=== PATIENT | female | born 1940 | race Caucasian/White ===

== ENCOUNTER 2019-05-20 05:52 | Observation (INO) | payer MEDICARE, OTHER ==
[2019-05-20] MEDS ORDERED: Lactated Ringers 1,000 ML IV SCH (07:00)
[2019-05-20] MEDS ORDERED: CEFAZOLIN 2 GM-D5W BAG** 2 GM/50 ML ML IV SCH (07:00)
[2019-05-20] MEDS ORDERED: Xylocaine-Mpf 2% 5 Ml Vial ONE (07:48)
[2019-05-20] MEDS ORDERED: Decadron 4 MG INJ ONE ×2 (07:48→13:32)
[2019-05-20] MEDS ORDERED: EMLA Cream 5 GM TP PRN (08:01)
[2019-05-20] MEDS ORDERED: Sensorcaine 0.25% 10 ML ONE ×2 (08:11→09:20)
--- NOTE | 2019-05-20 08:44 | HP ---
DATE OF SURGERY: 05/20/2019 HISTORY OF PRESENT ILLNESS: The patient is a 78 year-old who has prior history of left breast biopsy in the past. She had abnormal right breast mammogram and underwent biopsy filtrating ductal carcinoma. She is in need of lumpectomy, Faber lymph node biopsy, radioscintigraphy possible blue dye. PAST MEDICAL HISTORY: Atrial fibrillation in the past, chronic obstructive pulmonary disease, congestive heart failure. PAST SURGICAL HISTORY: D&C. section. Right breast lumpectomy 1989. Heart cath 2012. Colonoscopy. Left breast lumpectomy in the past. Lung surgery. Hysterectomy. Right wrist surgery. Left breast surgery 2013. Core biopsy March 2019 showing small differentiated infiltrating ductal carcinoma right breast. MEDICATIONS: Budesonide, Albuterol, nebulized Combivent, Alendronate, atorvastatin, Verapamil, Montelukast, omeprazole, Eliquis, Estradiol, furosemide, paroxetine, aspirin, Spironolactone, probiotic, iron-65, Coq-10. ALLERGIES: NKDA. FAMILY HISTORY: Diabetes, hypertension. She does have family history of breast cancer in the past. History of congestive heart failure, chronic obstructive pulmonary disease, hypertension. SOCIAL HISTORY: No smoking or alcohol abuse. REVIEW OF SYSTEMS: Fourteen systems reviewed as noted above per preadmission assessment. She has had chronic obstructive pulmonary disease. She has some hypertension and some heart disease. Recently diagnosed with breast cancer. Benign left breast biopsy in the past. PHYSICAL EXAMINATION: GENERAL: No acute distress. HEENT: Sclerae nonicteric. NECK: No JVD. CHEST: Equal excursion, nonlabored breathing. CVS: Regular rate and rhythm. BREAST: A little bit of induration where they did the biopsy. No large mass. No palpable axillary adenopathy at this point. ABDOMEN: Soft. EXTREMITIES: No edema. NEURO: Alert, oriented, moving extremities symmetrically. No gross motor deficits noted. IMPRESSION: Right breast cancer. I feel the patient will benefit from right breast lumpectomy prior needle placement with Faber lymph node biopsy with radioscintigraphy with possible blue dye. General risk of bleeding or infection, risk of hematoma, infection or abscess possibly requiring packing, risk of involved margins possibly requiring wider excision or other procedures, general risk of aches, pains, burning or numbness possible chcf in nature, risk of contour changes of her breast as we are removing some volume. She also understands the general risk of axillary needle biopsy, risk of bleeding or infection, risk of hematoma, seroma or lymphocele formation, risk of aches, pain, burning or numbness or weakness of the extremity or shoulder or scapula possible wing scapula, risk of sensory or motor nerve irritation, scar formation or injury, possible inability to identify a Faber node possibly requiring axillary dissection, biopsy or removal of any chronically suspicious thien tissue. She understands as well as general risk of anesthesia, deep venous thrombosis, pulmonary embolism, pneumonia. When she will receive cardiac clearance and pulmonary clearance will proceed with right breast lumpectomy prior needle placement, Faber lymph node biopsy as an outpatient.
[2019-05-20] MEDS ORDERED: Lactated Ringers 1,000 ML IV ONE (09:20)
[2019-05-20] MEDS ORDERED: Quelicin Fliptop 200 MG/10 ML ONE (11:51)
[2019-05-20] MEDS ORDERED: Zemuron 100 MG/10 ML ONE (11:51)
[2019-05-20] MEDS ORDERED: DIPRIVAN 200 MG/20 ML IV ONE (11:51)
[2019-05-20] MEDS ORDERED: SUBLIMAZE 100 MCG/2 ML ONE ×2 (11:51→14:39)
[2019-05-20] MEDS: PROVENTIL 2.5 MG/3 ML NEB IH PRN ×2 (12:39→20:59)
--- NOTE | 2019-05-20 13:06 | XRAY ---
Indication: Right breast cancer. Patient received 4 right periareolar subcutaneous injections totaling 970 Ci of filtered technetium 99 sulfur colloid. Delayed anterior and lateral planar images obtained. Solitary focus of increased radiopharmaceutical activity seen in the right axillary tail. Skin was demarcated for the surgeon. Patient was taken to surgery. Impression: Single radiopharmaceutical active sentinel node identified.
[2019-05-20] MEDS ORDERED: Zofran 4 MG/2 ML VIAL ONE ×2 (13:32→15:23)
[2019-05-20] MEDS ORDERED: TORAdol 30 mg Injection ONE (13:32)
--- NOTE | 2019-05-20 13:58 | XRAY ---
Indication: Needle wire localization for biopsy proven 4:00 right cancer. Patient's outside mammograms from [facility] were reviewed revealing mammotome clip/biopsy site 4:00 position approximately 9 cm from the nipple. Informed consent obtained. Right breast was compressed in the mediolateral plane using a alphanumeric grid paddle. Skin was cleansed with Betadine swabs. A 20-gauge Ghiatas needle was then percutaneously. Orthogonal right mammogram was obtained confirming overall good needle tip placement. Ultimately a hooked megan wire was then inserted into the needle with the outer needle removed. Repeat orthogonal digital mammograms obtained confirms overall good needle placement. Wire were secured and overlying bandage material applied. Patient was then taken to surgery. Impression: Technically successful needle wire localization 4:00 mammotome clip/biopsy site. No immediate complications.
--- NOTE | 2019-05-20 14:00 | XRAY ---
Indication: Surgical specimen following needle wire localization. A single specimen radiograph demonstrates mammotome clip/biopsy site with intact megan wire. Findings were reported to the surgeon.
[2019-05-20] MEDS ORDERED: DILAUDID 2 MG INJECTION ONE (14:39)
[2019-05-20] MEDS ORDERED: DUONEB 0.5-3 MG/3 ml Neb IH ONE (15:15)
--- NOTE | 2019-05-20 15:17 | OP ---
SURGERY DATE/TIME: 05/20/2019 1310 PREOPERATIVE DIAGNOSIS: Right breast cancer. POSTOPERATIVE DIAGNOSIS: Right breast cancer. PROCEDURES: 1) Right breast lumpectomy prior needle placement. 2) Mitchells lymph node biopsy right axilla with radiolymphoscintigraphy. SURGEON: Dr. Dixon Moyer. ANESTHESIA: General. ESTIMATED BLOOD LOSS: Minimal. INDICATIONS: As noted above. Risks and benefits explained in detail and not limited to and consent obtained. DESCRIPTION OF PROCEDURE AND FINDINGS: The patient is taken to the operating room. General anesthesia induced. She had previously been to radiology and nuclear medicine injection and had prior needle placement. The right breast was marked in the preoperative holding area. She was taken to the operating room. General anesthesia induced. Breast and axilla prepped and draped in usual sterile fashion. After official time out and no disagreement with planned procedure, a spindle-shaped segment of skin was included over the top around the prior needle placement. Dissection carried down through the subcu circumferentially around wire centered placement down the chest wall beneath slowly and carefully. The specimen is passed off and marked with double tie at the 6:00 and single tie at 3:00. Specimen mammography radiologist called back and said the specimen looked good with adequate radiographic margins. Hemostasis controlled with some pinpoint cautery. Small oozing vessels controlled with 3-0 Vicryl suture ligature. Good hemostasis noted. The deeper breast parenchyma was then brought back reducing the space as much as possible with interrupted 3-0 Vicryl. Deep and superficial subcu closed with 3-0 Vicryl. Skin closed with 4-0 Vicryl. Steri-Strips and sterile dressing applied. She was given a breast binder at the end of the procedure. The gloves and instruments were changed. At this time the nuclear probe was carefully placed in the axilla. A transverse incision made. Dissection carried deep into the deep axilla and slowly and carefully a small but slightly enlarged lymph node that had high uptake slowly and carefully dissected free clipping the small lymphatics arterioles or venules anterior to the capsule. This gave uptake of about 140 and was definitely the true hot Mitchells node. Only one had been seen per radiology. It is just slightly thickened lymph node but there is question whether there is any radioactive uptake initially of this slightly thickened adjacent lymph node was carefully dissected free. There did not appear to be any radioactivity on the back table but it is was sent as a second lymph node. Clipped lymphatics and blood vessels into and out of it staying directly on the capsule. There was no other clinically suspicious adenopathy. There was no other obvious Mitchells node at the nuclear probe. Good hemostasis noted. Wound irrigated out. ODESSA drain placed in the deep axilla out through anterior stab wound secured with PDS suture and placed to bulb suction. Good hemostasis noted. The axillary fascia reapproximated with 3-0 Vicryl. Subcu closed with 3-0 Vicryl. Skin closed with 4-0 Vicryl. Steri-Strips and sterile pressure dressing applied. The patient tolerated the procedure well. There were no immediate complications. Findings discussed with the family out in the waiting area.
[2019-05-20] MEDS ORDERED: Narcan 0.4 MG/ML ONE (16:13)
[2019-05-20] MEDS ORDERED: BRIDION 200MG/2ML IV ONE (16:14)
[2019-05-20] MEDS ORDERED: Lasix 20 MG/2 ML ONE (16:14)
[2019-05-20] MEDS: Lasix 20 MG/2 ML IV ONE ×2 (16:20→16:22)
[2019-05-20] MEDS ORDERED: NORCO 5/325 MG PO PRN (19:57)
[2019-05-20] MEDS ORDERED: Zofran 4 MG/2 ML VIAL IV PRN (19:58)
[2019-05-20] MEDS ORDERED: MORPHINE SULFATE 2 MG INJ IV PRN (19:58)
[2019-05-20] MEDS ORDERED: Reglan 10 MG/2 ML IV PRN (19:59)
[2019-05-20] MEDS ORDERED: Aldactone 25 MG PO ONE (22:00)
[2019-05-20] MEDS ORDERED: CALAN 80 MG PO ONE (22:00)
[2019-05-20] MEDS ORDERED: Zestril 20 MG PO ONE (22:00)
[2019-05-21 05:19] LABS: Hematocrit 31.5 % (35-47); Hemoglobin 9.7 gm/dl (12.0-16.0); Mean Cell Volume 85.4 fl (78-100); Mean Corpuscular Hemoglobin 26.3 pg (26-32); Mean Corpuscular Hgb Concent. 30.8 g/dl (32-36); Mean Platelet Volume 11.9 fl (6-9.5); Platelet Count 196 K/mm3 (150-450); Red Blood Count 3.69 M/mm3 (4.1-5.4); Red Cell Distribution Width 14.1 % (11.5-14.0); White Blood Count 7.8 K/mm3 (4.0-10.5)
[2019-05-21 05:25] LABS: ANION GAP 12.3 MEQ/L (5-15); Calcium 9.3 mg/dL (8.4-10.2); Creatinine 1 1.49 mg/dL (0.52-1.04); Potassium 5.3 mmol/L (3.5-5.1)
[2019-05-21] MEDS ORDERED: DUONEB 0.5-3 MG/3 ml Neb IH ONE (06:45)
[2019-05-21] MEDS ORDERED: PROVENTIL 2.5 MG/3 ML NEB IH ONE (06:48)
[2019-05-21] MEDS ORDERED: Reglan 10 MG/2 ML IV PRN (06:48)
[2019-05-21] MEDS: PROVENTIL 2.5 MG/3 ML NEB IH SCH ×2 (06:51→11:07)
[2019-05-21 08:53] VITALS: BP 128/61; PULSE 78; O2SAT 98
== END 2019-05-21 12:45 | disposition home or self-care (01) ==
LOC: SDC 05:52 → MED SURG 18:53
PROVIDERS: ADMIT Family Medicine; ATTEND Family Medicine
DX: C50.911 Malignant neoplasm of unspecified site of right female breast (principal)
CPT/HCPCS: 19081; 19281; 19301; 36415; 38525; 76098; 78195; 80048; 85027; 94150; 94640; 94760; A9541; G0378; J0330; J0690; J1100; J1170; J1885; J1940; J2310; J2405; J2704; J3010; J7609; A9270-GY

== ENCOUNTER 2024-06-24 16:52 | Emergency (ER) | payer MEDICARE, OTHER ==
--- NOTE | 2024-06-24 17:23 | ERPHSYRPT ---
- History of Present Illness Time Seen by Provider: 06/24/24 17:22 Source: patient, family Exam Limitations: no limitations Physician History: This is an 83-year-old white female patient who presents to the emergency department accompanied by family member because of episodes of hemoptysis that began yesterday. She has had a few episodes today. Patient is on Eliquis which is part of her treatment plan for atrial fibrillation. In addition, the patient has COPD that is oxygen dependent on 2 L of oxygen via nasal cannula. Patient has a history of CHF, gastroesophageal reflux disease, hyperlipidemia, chronic anemia on iron supplementation and hypertension. Patient denies chest pain. Timing/Duration: yesterday Cough Quality/Degree: mild, blood streaked sputum Possible Cause: no prior episodes Modifying Factors: Improves With: coughing, oxygen (Patient chronically wears oxygen) Associated Symptoms: cough Allergies/Adverse Reactions: No Known Drug Allergies Allergy (Verified 06/24/24 17:17) Home Medications: Atorvastatin Calcium [Lipitor] 40 mg PO QAM 05/13/19 [History] Fluticasone/Umeclidin/Vilanter [Trelegy Ellipta 100-62.5-25] 1 each IH DAILY 05/13/19 [History] Ferrous Sulfate, Dried [Iron] 65 mg PO DAILY 05/14/19 [History] Furosemide 20 mg [Lasix 20 mg] 20 mg PO BID 05/14/19 [History] Montelukast Sodium 10 mg [Singulair 10 MG] 10 mg PO QPM 05/14/19 [History] Multivitamin [Multivitamins] 1 each PO DAILY 05/14/19 [History] Omeprazole 20 mg PO BID 05/14/19 [History] Oxybutynin Chloride Xl 5 mg [Ditropan XL 5 MG] 5 mg PO DAILY 05/14/19 [History] Spironolactone 25 mg [Aldactone 25 MG] 25 mg PO DAILY 05/14/19 [History] Ubidecarenone/Vit E Acet [Co Q-10 100 mg Softgel] 1 each PO DAILY 05/14/19 [History] Amiodarone HCl 200 mg [Cordarone 200 MG] 200 mg PO BID 06/24/24 [History] Travel Risk - International Travel Have you traveled outside of the country in past 3 weeks: No - Emerging Infectious Disease Are you exhibiting symptoms associated with any current EIDs: Yes Symptoms: Cough: New Onset - Review of Systems Constitutional: No Symptoms Eyes: No Symptoms Ears, Nose, & Throat: No Symptoms Respiratory: Cough Cardiac: No Symptoms Abdominal/Gastrointestinal: No Symptoms Genitourinary Symptoms: No Symptoms Musculoskeletal: No Symptoms Skin: No Symptoms Neurological: No Symptoms Psychological: No Symptoms Endocrine: No Symptoms Hematologic/Lymphatic: No Symptoms Immunological/Allergic: No Symptoms All Other Systems: Reviewed and Negative - Past Medical History Pertinent Past Medical History: Yes Neurological History: No Pertinent History ENT History: Cataracts, Other Cardiac History: Arrhythmia, Congestive Heart Failure, High Cholesterol, Hypertension Respiratory History: COPD, Sleep Apnea, Other Endocrine Medical History: Hypothyroidism Musculoskeletal History: Arthritis GI Medical History: GERD History: No Pertinent History Psycho-Social History: No Pertinent History Female Reproductive Disorders: Breast Cancer Other Medical History: on 2l O2 at all times hx smoker. hx hypothyroid - not needing medication at this time. 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 - Past Surgical History Past Surgical History: Yes Neuro Surgical History: No Pertinent History Cardiac: Cardiac Catheterization Respiratory: Other Gastrointestinal: Hernia Repair Genitourinary: No Pertinent History Musculoskeletal: Orthopedic Surgery Female Surgical History: Hysterectomy, Dilation & Curettage, Section, Lumpectomy Other Surgical History: R breast lumpectomy with lymph nodes. L breast lumpectomy. left breast surgery. right wrist surgery. " lung surgery" - Social History Smoking Status: Former smoker Exposure to second hand smoke: No Drug Use: none - Nursing Vital Signs Nursing Vital Signs: Initial Vital Signs Temperature 97.7 F 06/24/24 17:26 Pulse Rate 58 L 06/24/24 17:26 Respiratory Rate 18 06/24/24 17:26 Blood Pressure 151/77 06/24/24 17:26 O2 Sat by Pulse Oximetry 98 06/24/24 17:26 Pain Scale Pain Intensity 0 - Physical Exam General Appearance: no apparent distress, alert, anxiety Eye Exam: PERRL/EOMI, eyes nml inspection Ears, Nose, Throat Exam: normal ENT inspection, moist mucous membranes Neck Exam: normal inspection, non-tender, supple, full range of motion Respiratory Exam: normal breath sounds, lungs clear, airway intact, No chest tenderness, No respiratory distress Cardiovascular Exam: regular rate/rhythm, normal heart sounds, normal peripheral pulses Gastrointestinal/Abdomen Exam: soft, normal bowel sounds, No tenderness Pelvic Exam: not done Rectal Exam: not done Back Exam: normal inspection, normal range of motion, No CVA tenderness, No vertebral tenderness Extremity Exam: normal inspection, normal range of motion, pelvis stable Neurologic Exam: alert, oriented x 3, cooperative, 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 QTc is 406) Ordered Tests: Active Orders 24 hr Category Date Time Status Tandem Operator STAT Care 06/24/24 18:37 Active EKG-ER Only STAT Care 06/24/24 18:36 Active IV Insertion STAT Care 06/24/24 18:36 Active Pulse Oximetry (ED) STAT Care 06/24/24 18:36 Active CHEST WITHOUT CONTRAST [CT] Stat Exams 06/24/24 18:36 Taken BLOOD CULTURE Stat Lab 06/24/24 18:55 Received CBC W DIFF Stat Lab 06/24/24 18:50 Completed CMP Stat Lab 06/24/24 18:50 Completed MAGNESIUM Stat Lab 06/24/24 18:50 Completed NT PRO BNPII Stat Lab 06/24/24 18:50 Completed TROPONIN Q4H Lab 06/24/24 18:50 Completed TROPONIN Q4H Lab 06/24/24 22:45 Ordered TROPONIN Q4H Lab 06/25/24 02:45 Ordered Lab/Rad Data: Laboratory Result Diagrams 06/24/24 18:50 06/24/24 18:50 Laboratory Results 06/24/24 06/24/24 06/24/24 Range/Units Unknown 18:50 18:50 WBC (3.98-10.04) x10^3/uL RBC (3.93-5.22) x10^6/uL Hgb (11.2-15.7) g/dL Hct (34.1-44.9) % MCV (79.4-94.8) fL MCH (25.6-32.2) pg MCHC (32.2-35.5) g/dL RDW (11.7-14.4) % Plt Count (182-369) x10^3/uL MPV (9.4-12.3) fL Gran % (34.0-71.1) % Immature Gran % (Auto) (0.001-0.429) % Nucleat RBC Rel Count (0.00-0.2) % Eos # (Auto) (0.04-0.36) x10^3/uL Immature Gran # (Auto) (0.001-0.031) x10^3u/L Absolute Lymphs (auto) (1.18-3.74) x10^3/uL Absolute Monos (auto) (0.24-0.86) x10^3/uL Absolute Nucleated RBC (0.00-0.012) x10^3u/L Lymphocytes % (19.3-51.7) % Monocytes % (4.7-12.5) % Eosinophils % (0.7-5.8) % Basophils % (0.1-1.2) % Absolute Granulocytes (1.56-6.13) x10^3/uL Basophils # (0.01-0.08) x10^3/uL Sodium 134 L (135-145) mmol/L Potassium 4.0 (3.5-5.1) mmol/L Chloride 99 (98-107) mmol/L Carbon Dioxide 29 (22-30) mmol/L Anion Gap 9.2 (5-15) MEQ/L BUN 37 H (7-17) mg/dL Creatinine 0.98 (0.52-1.04) mg/dL Estimated GFR 57.6 ML/MIN Glucose 148 H (74-106) mg/dL Calcium 8.9 (8.4-10.2) mg/dL Magnesium 1.8 (1.6-2.3) mg/dL Total Bilirubin 0.60 (0.2-1.3) mg/dL AST 23 (14-36) U/L ALT 28 (0-35) U/L Alkaline Phosphatase 93 (38-126) U/L Troponin I < 0.012 (0.000-0.033) ng/mL NT-Pro-B Natriuret Pep 1070 (<300) pg/mL Serum Total Protein 5.4 L (6.3-8.2) g/dL Albumin 3.1 L (3.5-5.0) g/dL Influenza Type A Ag NEGATIVE (NEGATIVE) Influenza Type B Ag NEGATIVE (NEGATIVE) RSV (PCR) NEGATIVE (NEGATIVE) SARS-CoV-2 (PCR) NEGATIVE (NEGATIVE) Slides for Path Review 06/24/24 Range/Units 18:50 WBC 16.1 H (3.98-10.04) x10^3/uL RBC 3.81 L (3.93-5.22) x10^6/uL Hgb 10.5 L (11.2-15.7) g/dL Hct 32.1 L (34.1-44.9) % MCV 84.3 (79.4-94.8) fL MCH 27.6 (25.6-32.2) pg MCHC 32.7 (32.2-35.5) g/dL RDW 20.8 H (11.7-14.4) % Plt Count 169 L (182-369) x10^3/uL MPV 10.7 (9.4-12.3) fL Gran % 94.0 H (34.0-71.1) % Immature Gran % (Auto) 1.6 H (0.001-0.429) % Nucleat RBC Rel Count 0.0 (0.00-0.2) % Eos # (Auto) 0 L (0.04-0.36) x10^3/uL Immature Gran # (Auto) 0.25 H (0.001-0.031) x10^3u/L Absolute Lymphs (auto) 0.40 L (1.18-3.74) x10^3/uL Absolute Monos (auto) 0.27 (0.24-0.86) x10^3/uL Absolute Nucleated RBC 0.00 (0.00-0.012) x10^3u/L Lymphocytes % 2.5 L (19.3-51.7) % Monocytes % 1.7 L (4.7-12.5) % Eosinophils % 0.0 L (0.7-5.8) % Basophils % 0.2 (0.1-1.2) % Absolute Granulocytes 15.15 H (1.56-6.13) x10^3/uL Basophils # 0.03 (0.01-0.08) x10^3/uL Sodium (135-145) mmol/L Potassium (3.5-5.1) mmol/L Chloride (98-107) mmol/L Carbon Dioxide (22-30) mmol/L Anion Gap (5-15) MEQ/L BUN (7-17) mg/dL Creatinine (0.52-1.04) mg/dL Estimated GFR ML/MIN Glucose (74-106) mg/dL Calcium (8.4-10.2) mg/dL Magnesium (1.6-2.3) mg/dL Total Bilirubin (0.2-1.3) mg/dL AST (14-36) U/L ALT (0-35) U/L Alkaline Phosphatase (38-126) U/L Troponin I (0.000-0.033) ng/mL NT-Pro-B Natriuret Pep (<300) pg/mL Serum Total Protein (6.3-8.2) g/dL Albumin (3.5-5.0) g/dL Influenza Type A Ag (NEGATIVE) Influenza Type B Ag (NEGATIVE) RSV (PCR) (NEGATIVE) SARS-CoV-2 (PCR) (NEGATIVE) Slides for Path Review YES - Progress Progress: improved, re-examined Air Movement: good Progress Note: 06/24/24 19:07 My medical decision making and the assignment of moderate complexity to this patient's medical issue today is based on review of the patient's past medical history, review of the patient's medication list, reviewed patient drug allergy list, history present illness and physical findings on examination. The workup in this patient includes placement of an intravenous line, CBC, CMP, troponin level, BNP, twelve-lead EKG, PT/INR, chest CT without contrast. We will also perform viral swabs. Differential diagnosis includes but is not limited to hemoptysis secondary to intrathoracic abnormality, anti-coagulation adverse effect, viral illness, pneumonia 06/24/24 20:[address] scan of the chest without contrast was interpreted by the radiologist and I reviewed the impression. The impression states left upper lobe masslike opacity new compared to chest x-ray dated 05/29/2024. Probably organizing infection. However there appears to be cavitary mass with irregular spiculated margin and 1 must also consider malignancy. 06/24/24 20:40 I interpreted the patient's laboratory data results. Patient does have a leukocytosis. Her hemoglobin is 10.5 which is in the range where she normally runs. Patient does have a history of chronic anemia. Blood Culture(s) Obtained: Yes Antibiotics given: Yes Counseled pt/family regarding: lab results, diagnosis, rad results Medical Desision Making - Independent Historian Additional History obtained from: Family - Diagnostic Testing Diagnostic test were ordered, analyzed, and reviewed by me: Yes Radiological Interpretation: Reviewed by me, Teleradiologist Report - Risk of complications The pt has a mod risk of morbidity or mortality based on: Need for prescription drug management - Departure Departure Disposition: Home Clinical Impression: Cavitating mass in left upper lung lobe, Leukocytosis, Chronic anemia Condition: Stable Critical Care Time: No Referrals: LATOYA MELGOZA PA [Primary Care Provider] - Follow up/PCP as directed Additional Instructions: Drink plenty of fluids. Stop your Eliquis. Continue taking your other medications as prescribed. Call your prescribing provider tomorrow, 06/25/2020 4 in the morning, to make arrangements for follow-up appointment for further evaluation and management of this left upper lobe pulmonary mass Prescriptions: Cefdinir 300 mg PO BID #14 cap
[2024-06-24 17:34] VITALS: TEMP 97.7
[2024-06-24 19:01] LABS: Absolute Neutrophil Ct (ANC) 15.15 x10^3/uL (1.56-6.13); BASOPHIL % 0.2 % (0.1-1.2); Basophil (Absolute #) 0.03 x10^3/uL (0.01-0.08); Eosinophil (Absolute #) 0 x10^3/uL (0.04-0.36); Hematocrit 32.1 % (34.1-44.9); Hemoglobin 10.5 g/dL (11.2-15.7); IMMATURE GRAN # 0.25 x10^3u/L (0.001-0.031); IMMATURE GRAN % 1.6 % (0.001-0.429); Lymphocytes % 2.5 % (19.3-51.7); Mean Cell Volume 84.3 fL (79.4-94.8); Mean Corpuscular Hemoglobin 27.6 pg (25.6-32.2); Mean Corpuscular Hgb Concent. 32.7 g/dL (32.2-35.5); Mean Platelet Volume 10.7 fL (9.4-12.3); Monocyte (Absolute #) 0.27 x10^3/uL (0.24-0.86); Monocytes % 1.7 % (4.7-12.5); Platelet Count 169 x10^3/uL (182-369); Red Blood Count 3.81 x10^6/uL (3.93-5.22); Red Cell Distribution Width 20.8 % (11.7-14.4); White Blood Count 16.1 x10^3/uL (3.98-10.04)
[2024-06-24 19:14] LABS: ALBUMIN 3.1 g/dL (3.5-5.0); ANION GAP 9.2 MEQ/L (5-15); BILIRUBIN,TOTAL 0.6 mg/dL (0.2-1.3); Calcium 8.9 mg/dL (8.4-10.2); Creatinine 1 0.98 mg/dL (0.52-1.04); EST GLOMERULAR FILTRATION RATE 57.6 ML/MIN; Total Protein 5.4 g/dL (6.3-8.2)
[2024-06-24 19:27] LABS: MAGNESIUM 1.8 mg/dL (1.6-2.3); NT PRO BNPII 1070 pg/mL (<300); TROPONIN < 0.012 ng/mL (0.000-0.033)
[2024-06-24 19:38] LABS: INFLUENZA A NEGATIVE (NEGATIVE); INFLUENZA B NEGATIVE (NEGATIVE); RESPIRATORY SYNCTIAL VIRUS NEGATIVE (NEGATIVE); SARS-CoV-2 Xpert Express NEGATIVE (NEGATIVE)
[2024-06-24 19:44] LABS: Slide Review 1 YES
[2024-06-24] MEDS: ROCEPHIN 1 GM / 100 ML NaCl 1 GM/100 ML IVPB IV ONE (21:19)
[2024-06-24] MEDS ORDERED: ROCEPHIN 1 GM / 100 ML NaCl 0 GM/0 ML IVPB IV ONE (21:19)
[2024-06-24] MEDS ORDERED: Rocephin 1000 MG INJ ONE (21:24)
[2024-06-24] MEDS: Rocephin 1000 MG INJ IM ONE (21:26)
[2024-06-24 21:56] VITALS: BP 141/65; PULSE 55; RESP 20; O2SAT 99
--- NOTE | 2024-06-25 08:45 | XRAY ---
Indication: Hemoptysis. Multiple contiguous axial images obtained through the chest without contrast. Comparison: None Left upper lobe demonstrates 5.8 x 6.6 x 5.9 cm consolidation/masslike opacity with irregular margins and small focus central cavitation. Periphery demonstrates hazy interstitial alveolar opacities. Tiny left effusion. Above findings are new with respect chest radiograph May 29, 2024 and favored to be inflammatory/infectious in etiology. Remaining lungs demonstrates mild diffuse pulmonary emphysema and scattered subsegmental atelectasis/scarring. Heart borderline enlarged with scattered coronary calcifications. Aorta moderately arteriosclerotic without aneurysm. Small mediastinal and left hilar calcified nodes. Additional tiny distal paraesophageal calcified nodes. No pathologic mediastinal lymphadenopathy. Bony thorax intact with osteopenia and moderate degenerative changes throughout the spine. Limited upper abdomen demonstrates tiny hepatic/splenic calcified granulomas. Impression: 1. Large slightly cavitary left upper lobe consolidation/masslike opacity with tiny effusion as detailed favored to be inflammatory/infectious in etiology. Correlate clinically. 2. Chronic findings including pulmonary emphysema, atelectasis/scarring, arteriosclerotic disease, chronic bony findings, and old granulomatous disease.
== END 2024-06-24 21:50 | disposition home or self-care (01) ==
LOC: ED 16:52
DX: A15.0 Tuberculosis of lung (principal); D72.829 Elevated white blood cell count, unspecified; D64.9 Anemia, unspecified; I11.0 Hypertensive heart disease with heart failure; I50.9 Heart failure, unspecified; E78.5 Hyperlipidemia, unspecified; Z79.899 Other long term (current) drug therapy
CPT/HCPCS: 0241U; 36415; 71250; 80053; 83735; 83880; 84484; 85025; 87040; 93005; 93041; 94760; 96372; 99285; 99284; J0696